=== PATIENT | male | born 1965 | race Caucasian/White ===

== ENCOUNTER 2017-02-12 11:01 | Emergency (ER) | payer MEDICAID ==
[~2017-02-12] VITALS: Ht 175.3 cm; Wt 75.0 kg
[2017-02-12] MEDS ORDERED: METF10002 PO (11:25)
[2017-02-12] MEDS ORDERED: LISI-604 PO (11:25)
[2017-02-12] MEDS ORDERED: KETOROLAC 30MG/ML VIAL IV STA (12:31)
[2017-02-12 12:46] LABS: BASOPHILS % 0.5 % (0.0-2.0); EOSINOPHILS % 4.2 % (0.0-5.0); HEMATOCRIT. 41.4 % (42.0-52.0); HEMOGLOBIN. 13.9 g/dL (14.0-18.0); LYMPHOCYTES % 23.8 % (20.0-50.0); MEAN CORPUSCULAR HEMOGLOBIN 29.1 pg (28.0-32.0); MEAN CORPUSCULAR VOLUME 86.7 fL (80.0-94.0); MEAN PLATELET VOLUME 8.9 fl (7.4-10.4); MONOCYTES % 8.3 % (2.0-8.0); NEUTROPHILS % 63.2 % (40.0-76.0); PLATELET 277 x1000/uL (130-400); RED BLOOD CELL COUNT 4.77 mill/uL (4.7-6.1); RED CELL DISTRIBUTION WIDTH 13.9 % (11.6-14.6)
[2017-02-12 12:53] LABS: CHLORIDE 103 mEq/L (98-107)
[2017-02-12 12:54] LABS: PARTIAL THROMBOPLASTIN TIME 27.1 sec (24.0-34.0); PROTHROMBIN TIME 10.6 sec
[2017-02-12 12:56] LABS: CARBON DIOXIDE 28 mEq/L (21-32)
[2017-02-12 13:03] LABS: TROPONIN I < 0.02 ng/mL (0.00-0.04)
[2017-02-12 15:34] VITALS: BP 115/105
== END 2017-02-12 16:06 | disposition home or self-care (01) ==
LOC: ER 11:58
DX: M54.12 Radiculopathy, cervical region (principal); I10 Essential (primary) hypertension; E11.9 Type 2 diabetes mellitus without complications
CPT/HCPCS: 36415; 71010; 72125; 80053; 83690; 84484; 85025; 85610; 85730; 93005; 96374; 99285; J1885; Z7610

== ENCOUNTER 2017-09-23 16:31 | Emergency (ER) | payer MEDICAID ==
[~2017-09-23] VITALS: Ht 172.7 cm; Wt 82.0 kg
[~2017-09-23 16:31] MED LIST: LISI-604 PO; METF10002 PO
[2017-09-23 16:32] VITALS: BP 116/77
== END 2017-09-23 22:50 | disposition left against medical advice (07) ==
LOC: ER 17:46
DX: Z53.21 Procedure and treatment not carried out due to patient leaving prior to being seen by health care provider (principal)